=== PATIENT | male | born 1995 | race African-American/Black ===

== ENCOUNTER 2017-06-18 20:16 | Emergency (ER) | payer SELFPAY ==
[~2017-06-18] VITALS: Ht 188 cm; Wt 83.9 kg
[2017-06-18 21:38] LABS: Hematocrit 44.2 % (41.0-53.0); Hemoglobin 15.1 g/dL (13.5-17.5); Mean Corpuscular Hemoglobin 28.9 pg (28.0-32.0); Mean Corpuscular Hgb Conc. 34.1 g/dL (32.0-36.0); Mean Corpuscular Volume 84.7 fL (80.0-100.0); Mean Platelet Volume 7.7 fL (7.4-10.4); Platelet Count (auto) 245 10^3/uL (140-450); Red Cell Distribution Width 13.4 % (11.6-16.0); White Blood Cell 4.4 10^3/uL (4.4-10.8)
[2017-06-18 21:40] LABS: Albumin 3.9 g/dL (3.4-5.0); Anion Gap 7 (5-15); Aspartate Aminotransferase 25 U/L (15-37); BUN/Creatinine Ratio 11.4; Blood Urea Nitrogen 16 mg/dL (7-18); Calcium 9.2 mg/dL (8.5-10.1); Carbon Dioxide 28 mmol/L (21-32); Chloride 109 mmol/L (98-107); GFR African American 81 mL/min; GFR Non-African American 67 mL/min; Glucose 78 mg/dL (74-106); Magnesium 2.3 mg/dL (1.6-2.6); Potassium 4.4 mmol/L (3.5-5.1); Sodium 144 mmol/L (136-145)
[2017-06-18 21:43] LABS: INR 1.03 (0.9-1.15); Partial Thromboplastin Time 26.8 sec (22.64-33.71); Prothrombin Time 11.2 sec (9.37-12.3)
[2017-06-18 21:45] LABS: Alkaline Phosphatase 84 U/L (45-117); Bilirubin, Total 0.4 mg/dL (0.2-1.0)
[2017-06-18 21:58] LABS: Metamyelocytes % 0; Myelocytes % 0; Promyelocytes % 0; Reactive Lymphocytes 0
[2017-06-18 22:46] LABS: Platelet Estimate Adequate; RBC Morphology Normal
[2017-06-19 00:54] LABS: Urine Bilirubin Negative (Negative); Urine Blood Negative /uL (Negative); Urine Color Yellow (Yellow); Urine Glucose Normal (Normal); Urine Ketone Negative (Negative); Urine Mucus FEW (None Seen); Urine Nitrite Negative (Negative); Urine RBC <1 /hpf (0 - 3); Urine Urobilinogen Normal (Negative); Urine pH 6.5 (5.0-8.0)
[2017-06-19 03:01] VITALS: BP 130/75
== END 2017-06-19 05:12 | disposition home or self-care (01) ==
LOC: EDBD 20:28 → ER 20:28
DX: K21.9 Gastro-esophageal reflux disease without esophagitis (principal); I49.3 Ventricular premature depolarization; E11.9 Type 2 diabetes mellitus without complications; I10 Essential (primary) hypertension
CPT/HCPCS: 36415; 71020; 80053; 80307; 81001; 83735; 84443; 84484; 85007; 85027; 85610; 85730; 93005

== ENCOUNTER 2022-06-05 18:12 | Emergency (ER) | payer SELFPAY ==
[~2022-06-05] VITALS: Ht 188 cm; Wt 84.1 kg
[2022-06-05] MEDS ORDERED: KETOROLAC TROMETH 60MG/2ML VIAL IM ONE (22:45)
[2022-06-05] MEDS ORDERED: ONDANSETRON ODT 4 MG TAB PO ONE (22:45)
[2022-06-06 00:07] LABS: Amphetamine Screen, Urine NEGATIVE (NEGATIVE); Barbiturate Scree,Urine NEGATIVE (NEGATIVE); Benzodiazephine Screen, Urine NEGATIVE (NEGATIVE); Cannabinoid Screen, Urine POSITIVE (NEGATIVE); Cocaine Screen, Urine NEGATIVE (NEGATIVE); Phencyclidine Screen, Urine NEGATIVE (NEGATIVE)
[2022-06-06 00:14] LABS: Opiate Scree,Urine NEGATIVE (NEGATIVE)
[2022-06-06] MEDS ORDERED: CYCL-838 PO (00:36)
[2022-06-06] MEDS ORDERED: IBUP800T26 PO (00:36)
[2022-06-06 01:17] VITALS: BP 99/68
== END 2022-06-06 01:20 | disposition home or self-care (01) ==
LOC: EDBD 18:12 → ER 18:12 → EDUNIT# 18:12 → ER 06-06 01:20
DX: S13.4XXA Sprain of ligaments of cervical spine, initial encounter (principal); S40.012A Contusion of left shoulder, initial encounter; M54.59 Other low back pain; F07.81 Postconcussional syndrome; V43.52XA Car driver injured in collision with other type car in traffic accident, initial encounter; Y93.89 Activity, other specified; Y92.410 Unspecified street and highway as the place of occurrence of the external cause; Y99.8 Other external cause status
CPT/HCPCS: 70450; 71250; 72125; 73030; 74176; 80307; 96372; 99284; J1885; L0120; Q0162